=== PATIENT | female | born 1985 | race Caucasian/White ===

== ENCOUNTER 2020-09-10 22:31 | Emergency (ER) | payer SELFPAY ==
[~2020-09-10] VITALS: Ht 170.2 cm; Wt 75.7 kg
[2020-09-11] MEDS ORDERED: DEXAMETHASONE SOD PHOS 10 MG/1 ML VIAL IV ONE
[2020-09-11] MEDS ORDERED: DEXAMETHASONE4 MG PO (01:16)
[2020-09-11 01:56] VITALS: BP 149/100
[2020-09-11] MEDS ORDERED: DEXAMETHASONE SOD PHOS 10 MG/1 ML VIAL IM ONE (02:00)
[2020-09-11] MEDS ORDERED: IOPAMIDOL 370 MG/ML 200 ML INFUS..BTL INJ ONE (06:41)
[2020-09-11] MEDS ORDERED: SODIUM CHLORIDE 0.9% 50ML 50 ML ONE (06:41)
== END 2020-09-11 02:00 | disposition home or self-care (01) ==
LOC: ER 23:07
DX: R49.0 Dysphonia (principal); J02.9 Acute pharyngitis, unspecified
CPT/HCPCS: 70491; 99283; J1100; Q9967